=== PATIENT | female | born 1970 | race Caucasian/White ===

== ENCOUNTER → 2017-02-01 | Outpatient (CLI) | payer OTHER ==
--- NOTE | 2017-02-04 09:24 | MM ---
Reason for exam: screening (asymptomatic). Last mammogram was performed 1 year and 11 months ago. History: Took hormonal contraceptives for 4 years beginning at age 26. Physical Findings: A clinical breast exam by your physician is recommended on an annual basis and results should be correlated with mammographic findings. MG Screening Mammo w CAD Bilateral CC and MLO view(s) were taken. Prior study comparison: March 16, 2015, bilateral MG screening mammo w CAD. March 06, 2013, bilateral digital screening mammo w/CAD. There are scattered fibroglandular densities. There is chronic nodularity in the right axilla. There is no discrete abnormality. ASSESSMENT: Negative, BI-RAD 1 RECOMMENDATION: Routine screening mammogram of both breasts in 1 year.
== END ==
LOC: RADMAMWWP 16:39
PROVIDERS: ATTEND Family Medicine
DX: Z12.31 Encounter for screening mammogram for malignant neoplasm of breast (principal)

== ENCOUNTER 2017-10-10 22:07 | Emergency (ER) | payer OTHER ==
[2017-10-10] MEDS ORDERED: FAMOTIDINE 20 MG/2 ML VIAL IV STA (22:26)
[2017-10-10] MEDS ORDERED: diphenhydrAMINE 50 MG/ML 1 ML VIAL IVP STA (22:26)
[2017-10-10] MEDS ORDERED: SODIUM CHLORIDE 0.9% 1,000 ML IV ONE (22:26)
[2017-10-10] MEDS ORDERED: methylPREDNISolone SOD SUCCI 125 MG/2 ML VIAL IV STA (22:26)
--- NOTE | 2017-10-11 00:28 | ED ---
Allergic Reaction HPI - General Chief complaint: Allergic Reaction Stated complaint: Poss Allergic Reaction Time Seen by Provider: 10/10/17 22:17 Source: patient Mode of arrival: ambulatory Limitations: no limitations - History of Present Illness Initial Comments: 47-year-old female presented for evaluation of ALLERGIC reaction. States that she took her Bactrim for urinary tract infection and after the first pill started to have urticaria and pruritus. She states her no other changes to her diet and no other new medications. She states she has tingling sensation around her lips however she denies any shortness of breath or closure of her throat. There is no tongue enlargement, chest pain, shortness of breath. He says she has ALLERGIES to other antibiotics including penicillin and cephalosporins but she states no other ALLERGIES. - Related Data Home Medications Medication Instructions Recorded Confirmed Acetaminophen Tab [Tylenol Tab] 650 mg PO Q6H PRN 10/10/17 10/10/17 Cholecalciferol [Vitamin D3] 5,000 unit PO DAILY 10/10/17 10/10/17 Ferrous Sulfate [Feosol] 325 mg PO DAILY 10/10/17 10/10/17 Ibuprofen [Motrin] 200 - 400 mg PO Q6HR PRN 10/10/17 10/10/17 Pseudoephedrine 12Hr [Sudafed 12Hr] 120 mg PO Q12H PRN 10/10/17 10/10/17 Sulfamethox-Tmp 800-160Mg [Bactrim 1 tab PO Q12H 10/10/17 10/10/17 DS 800-160 mg] Previous Rx's Medication Instructions Recorded Nitrofurantoin Monohyd/M-Cryst 100 mg PO Q12HR #14 cap 10/11/17 [Macrobid] predniSONE 50 mg PO DAILY #5 tablet 10/11/17 Allergies Allergy/AdvReac Type Severity Reaction Status Date / Time cefdinir [From Omnicef] Allergy Rash/Hives Verified 10/10/17 22:42 Penicillins Allergy Unknown Verified 10/10/17 22:42 Childhood Review of Systems ROS Statement: Those systems with pertinent positive or pertinent negative responses have been documented in the HPI. ROS Other: All systems not noted in ROS Statement are negative. Constitutional: Denies: fever, chills Eyes: Denies: eye pain, eye discharge ENT: Denies: ear pain, throat pain Respiratory: Denies: cough, dyspnea Cardiovascular: Denies: chest pain, palpitations Endocrine: Denies: fatigue, polydipsia Gastrointestinal: Denies: abdominal pain, nausea, vomiting Genitourinary: Denies: urgency, dysuria Musculoskeletal: Denies: back pain, arthralgia Skin: Reports: rash, change in color, pruritus. Denies: lesions, change in hair /nails Neurological: Denies: headache, weakness Psychiatric: Denies: anxiety, depression Hematological/Lymphatic: Denies: easy bleeding, easy bruising Past Medical History Past Medical History: No Reported History History of Any Multi-Drug Resistant Organisms: None Reported Past Surgical History: Hysterectomy Past Psychological History: No Psychological Hx Reported Smoking Status: Never smoker Past Alcohol Use History: Rare Past Drug Use History: None Reported General Exam Limitations: no limitations General appearance: alert, in distress (very mild) Head exam: Present: atraumatic, normocephalic, normal inspection Eye exam: Present: normal appearance, PERRL, EOMI. Absent: scleral icterus, conjunctival injection, periorbital swelling ENT exam: Present: normal exam, mucous membranes moist Neck exam: Present: normal inspection. Absent: tenderness, meningismus, lymphadenopathy Respiratory exam: Present: normal lung sounds bilaterally. Absent: respiratory distress, wheezes, rales, rhonchi, stridor Cardiovascular Exam: Present: regular rate, normal rhythm, normal heart sounds. Absent: systolic murmur, diastolic murmur, rubs, gallop, clicks GI/Abdominal exam: Present: soft, normal bowel sounds. Absent: distended, tenderness, guarding, rebound, rigid Rectal exam: Present: deferred Extremities exam: Present: normal inspection, full ROM, normal capillary refill. Absent: tenderness, pedal edema, joint swelling, calf tenderness Back exam: Present: normal inspection Neurological exam: Present: alert, oriented X3, CN II-XII intact Psychiatric exam: Present: normal affect, normal mood Skin exam: Present: warm, dry, intact, rash (urticarial), urticaria. Absent: normal color Course Vital Signs 10/10/17 10/11/17 22:09 00:38 Temperature 98.7 F 98.3 F Pulse Rate 90 75 Respiratory 20 19 Rate Blood Pressure 129/76 137/81 O2 Sat by Pulse 100 97 Oximetry Medical Decision Making - Medical Decision Making 47-year-old female presented for evaluation of ALLERGIC reaction after taking first dose of Bactrim. On physical examination she does have urticaria and is mildly itching her skin due to the pruritus. She denies any other preceding changes in diet, detergents, medications, or other exposures. He took no medications prior to coming to the ED. She is provided with Benadryl , steroids, and Pepcid and on reevaluation had resolution of her symptoms. She was informed that should be discharged with prescription for prednisone and instructions to follow-up with her primary care physician. She was also given a new prescription for Macrobid for her urinary tract infection. She states that she has taken this in the past and did not have a reaction at that time. She was further given return instructions. Patient acknowledged an understanding of all information provided and agreed with this plan of care. Disposition Clinical Impression: Allergic reaction Disposition: HOME SELF-CARE Condition: Stable Instructions: General Allergic Reaction (ED) Additional Instructions: Please use medication as discussed. Please follow up with family doctor if symptoms have not improved over the next two days. Please return to the emergency room if your symptoms increase or worsen or for any other concerns. Prescriptions: Nitrofurantoin Monohyd/M-Cryst [Macrobid] 100 mg PO Q12HR #14 cap predniSONE 50 mg PO DAILY #5 tablet Referrals: Felix Watkins DO [Primary Care Provider] - 1-2 days Time of Disposition: 00:28
[2017-10-11 00:39] VITALS: BP 137/81; PULSE 75; RESP 19; TEMP 98.3
== END 2017-10-11 00:39 | disposition home or self-care (01) ==
LOC: EC 22:07
DX: L50.0 Allergic urticaria (principal); T37.0X5A Adverse effect of sulfonamides, initial encounter; Z88.0 Allergy status to penicillin; Z88.1 Allergy status to other antibiotic agents; Z79.899 Other long term (current) drug therapy
CPT/HCPCS: 99282; 96374; 96375 ×2; J1200; J2930

== ENCOUNTER 2018-06-09 18:19 | Emergency (ER) | payer BC, OTHER ==
[2018-06-09 18:31] VITALS: RESP 18; TEMP 98.3
--- NOTE | 2018-06-09 19:23 | XR ---
EXAMINATION TYPE: XR chest 2V DATE OF EXAM: 06/09/2018 COMPARISON: NONE HISTORY: Chest pain TECHNIQUE: Frontal and lateral views of the chest are obtained. FINDINGS: Heart and mediastinum are normal. Lungs are clear. Diaphragm is normal. Bony thorax is int act. IMPRESSION: Normal chest. No change.
[2018-06-09 19:25] LABS: Basophils % (A) 0 %; Eosinophils # (A) 0.2 k/uL (0-0.7); Eosinophils % (A) 3 %; HCT 38.6 % (34.0-46.0); HGB 12.8 gm/dL (11.4-16.0); Lymphocytes # (A) 2.1 k/uL (1.0-4.8); Lymphocytes % (A) 25 %; MCH 28.4 pg (25.0-35.0); MCHC 33.1 g/dL (31.0-37.0); MCV 85.6 fL (80.0-100.0); Mean Platelet Volume 7.3; Monocytes # (A) 0.5 k/uL (0-1.0); Monocytes % (A) 6 %; Neutrophils # (A) 5.4 k/uL (1.3-7.7); Neutrophils % (A) 65 %; Platelet Count 297 k/uL (150-450); RBC 4.51 m/uL (3.80-5.40); RDW 13.8 % (11.5-15.5); WBC 8.3 k/uL (3.8-10.6)
[2018-06-09 19:26] LABS: ALT 36 U/L (9-52); AST 25 U/L (14-36); Albumin 4.5 g/dL (3.5-5.0); Alkaline Phosphatase 58 U/L (38-126); Anion Gap 11 mmol/L; Blood Urea Nitrogen 16 mg/dL (7-17); Calcium 9.4 mg/dL (8.4-10.2); Carbon Dioxide 21 mmol/L (22-30); Chloride 106 mmol/L (98-107); Glucose 116 mg/dL (74-99); Potassium 4.3 mmol/L (3.5-5.1); Sodium 138 mmol/L (137-145); Total Bilirubin 0.2 mg/dL (0.2-1.3); Total Protein 7.4 g/dL (6.3-8.2)
--- NOTE | 2018-06-09 19:32 | ED ---
General Adult HPI - General Chief complaint: Chest Pain Stated complaint: Chest Pain Time Seen by Provider: 06/09/18 18:39 Source: patient Mode of arrival: wheelchair Limitations: no limitations - History of Present Illness Initial comments: Is a 48-year-old female with a history of migraines who presents emergency department for sharp left-sided intermittent chest pain and also palpitations. She states is been going on for the last day however around 5 PM today she had an episode of palpitations and lightheadedness that lasted and excessively long amount of time. She states that she's had intermittent episodes of palpitations in the past however typically they resolve on their own very shortly. She states that this time it lasted multiple minutes and it concerned her. [facility]. The patient states that she does not have any chest tightness. She states that she has a little bit of sharp left-sided point tenderness that is intermittent in nature. Does not have it currently. She denies any associated shortness of breath. No recent travel or surgeries. No history of PE or DVT. Denies any other acute complaints. - Related Data Home Medications Medication Instructions Recorded Confirmed Acetaminophen Tab [Tylenol Tab] 650 mg PO Q6H PRN 10/10/17 06/09/18 Ibuprofen [Motrin] 200 - 400 mg PO Q6HR PRN 10/10/17 06/09/18 Pseudoephedrine 12Hr [Sudafed 12Hr] 120 mg PO Q12H PRN 10/10/17 06/09/18 Calcium Carbonate [Tums] 500 mg PO BID PRN 06/09/18 06/09/18 Allergies Allergy/AdvReac Type Severity Reaction Status Date / Time cefdinir [From Omnicef] Allergy Rash/Hives Verified 06/09/18 19:35 Penicillins Allergy Unknown Verified 06/09/18 19:35 Childhood sulfamethoxazole Allergy Swelling Verified 06/09/18 19:35 [From Bactrim] trimethoprim [From Bactrim] Allergy Swelling Verified 06/09/18 19:35 Review of Systems ROS Statement: Those systems with pertinent positive or pertinent negative responses have been documented in the HPI. ROS Other: All systems not noted in ROS Statement are negative. Past Medical History Past Medical History: No Reported History History of Any Multi-Drug Resistant Organisms: None Reported Past Surgical History: Hysterectomy Past Psychological History: No Psychological Hx Reported Smoking Status: Never smoker Past Alcohol Use History: Rare Past Drug Use History: None Reported General Exam - General Exam Comments Initial Comments: Constitutional: Awake alert Appears comfortable Head: Normocephalic atraumatic Eyes: no conjunctival injection No scleral icterus EOMI Neck: No JVD Supple Heart: Regular rate rhythm normal S1-S2 no murmurs Lungs: Clear to auscultation bilaterally No wheezing No rales Abdomen: Soft nondistended nontender Extremities: Non edematous DP pulses intact Radial pulses intact Neuro: A&Ox3 No focal neurologic deficits Psych: Appropriate mood and affect Limitations: no limitations Course Vital Signs 06/09/18 06/09/18 18:27 20:32 Temperature 98.3 F Pulse Rate 80 71 Respiratory 18 18 Rate Blood Pressure 121/81 122/57 O2 Sat by Pulse 100 99 Oximetry EKG Findings - EKG Comments: EKG Findings:: EKG showing normal sinus rhythm with a rate of 83. There is no abnormal ST segment changes or T-wave inversions. QTC is 432. Other intervals normal. No ectopy. Medical Decision Making - Medical Decision Making Is a 48-year-old who came in for atypical chest pain and palpitations. The patient was found to have no acute abnormalities on blood work. Troponin negative. EKG was unremarkable. No abnormalities on cardiac exercise specialist upon review. The patient did not have any episodes while emergency department. At this time I felt the patient needs to have close follow-up with primary doctor and get a Holter monitor or event monitor placed. An outpatient stress test should also be arranged. The patient states that she understands and agrees. She can return emergency Department if she has worsening or changing symptoms. All questions were answered. - Lab Data Result diagrams: 06/09/18 18:39 06/09/18 18:39 Lab Results 06/09/18 06/09/18 06/09/18 Range/Units 18:39 18:39 18:39 WBC 8.3 (3.8-10.6) k/uL RBC 4.51 (3.80-5.40) m/uL Hgb 12.8 (11.4-16.0) gm/dL Hct 38.6 (34.0-46.0) % MCV 85.6 (80.0-100.0) fL MCH 28.4 (25.0-35.0) pg MCHC 33.1 (31.0-37.0) g/dL RDW 13.8 (11.5-15.5) % Plt Count 297 (150-450) k/uL Neutrophils % 65 % Lymphocytes % 25 % Monocytes % 6 % Eosinophils % 3 % Basophils % 0 % Neutrophils # 5.4 (1.3-7.7) k/uL Lymphocytes # 2.1 (1.0-4.8) k/uL Monocytes # 0.5 (0-1.0) k/uL Eosinophils # 0.2 (0-0.7) k/uL Basophils # 0.0 (0-0.2) k/uL PT (9.0-12.0) sec INR (<1.2) APTT (22.0-30.0) sec Sodium 138 (137-145) mmol/L Potassium 4.3 (3.5-5.1) mmol/L Chloride 106 (98-107) mmol/L Carbon Dioxide 21 L (22-30) mmol/L Anion Gap 11 mmol/L BUN 16 (7-17) mg/dL Creatinine 0.70 (0.52-1.04) mg/dL Est GFR (CKD-EPI)AfAm >90 (>60 ml/min/1.73 sqM) Est GFR (CKD-EPI)NonAf >90 (>60 ml/min/1.73 sqM) Glucose 116 H (74-99) mg/dL Calcium 9.4 (8.4-10.2) mg/dL Total Bilirubin 0.2 (0.2-1.3) mg/dL AST 25 (14-36) U/L ALT 36 (9-52) U/L Alkaline Phosphatase 58 (38-126) U/L CK-MB (CK-2) 0.3 (0.0-2.4) ng/mL Troponin I <0.012 (0.000-0.034) ng/mL Total Protein 7.4 (6.3-8.2) g/dL Albumin 4.5 (3.5-5.0) g/dL Urine HCG, Qual (Not Detectd) 06/09/18 06/09/18 Range/Units 18:39 18:39 WBC (3.8-10.6) k/uL RBC (3.80-5.40) m/uL Hgb (11.4-16.0) gm/dL Hct (34.0-46.0) % MCV (80.0-100.0) fL MCH (25.0-35.0) pg MCHC (31.0-37.0) g/dL RDW (11.5-15.5) % Plt Count (150-450) k/uL Neutrophils % % Lymphocytes % % Monocytes % % Eosinophils % % Basophils % % Neutrophils # (1.3-7.7) k/uL Lymphocytes # (1.0-4.8) k/uL Monocytes # (0-1.0) k/uL Eosinophils # (0-0.7) k/uL Basophils # (0-0.2) k/uL PT 9.9 (9.0-12.0) sec INR 1.0 (<1.2) APTT 25.6 (22.0-30.0) sec Sodium (137-145) mmol/L Potassium (3.5-5.1) mmol/L Chloride (98-107) mmol/L Carbon Dioxide (22-30) mmol/L Anion Gap mmol/L BUN (7-17) mg/dL Creatinine (0.52-1.04) mg/dL Est GFR (CKD-EPI)AfAm (>60 ml/min/1.73 sqM) Est GFR (CKD-EPI)NonAf (>60 ml/min/1.73 sqM) Glucose (74-99) mg/dL Calcium (8.4-10.2) mg/dL Total Bilirubin (0.2-1.3) mg/dL AST (14-36) U/L ALT (9-52) U/L Alkaline Phosphatase (38-126) U/L CK-MB (CK-2) (0.0-2.4) ng/mL Troponin I (0.000-0.034) ng/mL Total Protein (6.3-8.2) g/dL Albumin (3.5-5.0) g/dL Urine HCG, Qual Not Detected (Not Detectd) Disposition Clinical Impression: Palpitations Disposition: HOME SELF-CARE Condition: Stable Instructions: Palpitations (ED) Is patient prescribed a controlled substance at d/c from ED?: No Referrals: Felix Watkins DO [Primary Care Provider] - 1-2 days
[2018-06-09 19:41] LABS: Creatine Kinase MB 0.3 ng/mL (0.0-2.4); Troponin I <0.012 ng/mL (0.000-0.034)
[2018-06-09 19:42] LABS: Partial Thromboplastin Time 25.6 sec (22.0-30.0); Prothrombin Time 9.9 sec (9.0-12.0)
[2018-06-09 20:33] VITALS: BP 122/57; PULSE 71
== END 2018-06-09 20:33 | disposition home or self-care (01) ==
LOC: EC 18:19
DX: R00.2 Palpitations (principal); R07.89 Other chest pain; Z88.1 Allergy status to other antibiotic agents; Z88.0 Allergy status to penicillin; Z88.2 Allergy status to sulfonamides
CPT/HCPCS: 36415; 71046; 80053; 81025; 82553; 84484; 85025; 85610; 85730; 93005; 99285

== ENCOUNTER 2021-09-08 07:58 | Day surgery (SDC) | payer BC ==
[2021-09-07 09:52] VITALS: BMI 36.0
[~2021-09-08 07:58] MED LIST: LACTATED RINGERS 1,000 ML IV SCH
[2021-09-08 08:24] VITALS: TEMP 97.8
[2021-09-08] MEDS ORDERED: LACTATED RINGERS 1,000 ML IV ONE (08:26)
[2021-09-08] MEDS ORDERED: PROPOFOL 10 MG/ML 20 ML VIAL IV ONE (09:10)
--- NOTE | 2021-09-08 09:24 | P.PCN ---
Date of Procedure: 09/08/21 Procedure(s) Performed: BRIEF HISTORY: Patient is a 51-year-old pleasant white female scheduled for an elective colonoscopy as a part of screening for colorectal neoplasia. PROCEDURE PERFORMED: Colonoscopy. PREOPERATIVE DIAGNOSIS: Screening for colon cancer. IV sedation per Anesthesia. PROCEDURE: After informed consent was obtained, the patient, was brought into the endoscopy unit. IV sedation was administered by Anesthesia under continuous monitoring. Digital rectal examination was normal. Initially the Olympus CF-160 flexible video colonoscope was then inserted in the rectum, gradually advanced into the cecum without any difficulty. Careful examination was performed as the scope was gradually being withdrawn. Ileocecal valve and the appendiceal orifice were visualized and appeared normal. Prep was excellent. Mucosa of the cecum, ascending colon, transverse colon, descending colon, sigmoid colon, and rectum appeared normal. Retroflexion was performed in the rectum and no lesions were seen. The patient tolerated the procedure well. IMPRESSION: Normal-appearing colon from rectum to cecum no evidence of colorectal neoplasia. RECOMMENDATIONS: Findings of this examination were discussed with the patient as well as a family. She was advised to have a repeat screening colonoscopy in 10 years..
[2021-09-08 09:33] VITALS: RESP 16
[2021-09-08 09:47] VITALS: BP 122/78; PULSE 51
== END 2021-09-08 10:19 | disposition home or self-care (01) ==
LOC: ORWHC2ENDO 07:58
PROVIDERS: ATTEND Internal Medicine Gastroenterology
DX: Z12.11 Encounter for screening for malignant neoplasm of colon (principal); R00.2 Palpitations; Z79.1 Long term (current) use of non-steroidal anti-inflammatories (NSAID); Z88.0 Allergy status to penicillin; Z88.2 Allergy status to sulfonamides; Z88.1 Allergy status to other antibiotic agents
CPT/HCPCS: J2704; G0121

== ENCOUNTER → 2022-02-16 | Outpatient (CLI) | payer BC ==
--- NOTE | 2022-02-16 16:08 | NM ---
EXAMINATION TYPE: NM bone scan whole body, DC bone SPECT DATE OF EXAM: 02/16/2022 COMPARISON: None HISTORY: Low back pain, radiculopathy Delayed whole-body scanning was performed following the injection of 23.6 mCi Tc 99m MDP. Images acq uired 3.5 hours post injection. SPECT images were obtained through the lower spine. Whole-body imagin g obtained. FINDINGS: No abnormal uptake is evident. There is a slight spinal curvature present. Soft tissue uptake is norm al. Uptake within the shoulders, sternoclavicular joints, knees, ankles is likely degenerative. IMPRESSION: Mild spinal curvature, degenerative changes.
== END | disposition home or self-care (01) ==
LOC: RADNMMAIN 10:31
PROVIDERS: ATTEND Orthopaedic Surgery Orthopaedic Surgery of the Spine
DX: M19.012 Primary osteoarthritis, left shoulder (principal); M19.011 Primary osteoarthritis, right shoulder; M17.0 Bilateral primary osteoarthritis of knee; M19.072 Primary osteoarthritis, left ankle and foot; M19.071 Primary osteoarthritis, right ankle and foot; M43.16 Spondylolisthesis, lumbar region; M47.26 Other spondylosis with radiculopathy, lumbar region
CPT/HCPCS: 78306; 78803; A9503

== ENCOUNTER → 2023-07-01 | Outpatient (CLI) | payer BC ==
--- NOTE | 2023-07-01 11:55 | CT ---
EXAMINATION TYPE: CT soft tissue neck w con DATE OF EXAM: 07/01/2023 9:57 AM COMPARISON: None available. HISTORY: LEFT SIDED NECK PAIN CT DLP: 531.6 mGycm Automated exposure control for dose reduction was used. CONTRAST: CT scan of the neck is performed following with IV Contrast, patient injected with 100 mL of Isovue 3 00. Axial images are obtained, coronal and sagittal reformatted images are reviewed. FINDINGS: Airway: No gross abnormality seen. Parotid/submandibular glands: No gross abnormality seen. Carotid/Vascular Structures: No gross stenosis is seen. Osseous Structures: Is mild degenerative disc space narrowing at C5-6. Vertebral body heights and dis c spaces otherwise appear maintained. There is no prevertebral soft tissue swelling. Other: There is a coarse calcification within the right thyroid lobe measuring 1.3 cm in diameter. Th e visualized orbital structures and intracranial structures appear unremarkable. Visualized lung apic es are clear. IMPRESSION: 1. Mild degenerative changes. 2. No significant soft tissue neck abnormality is otherwise seen to explain the patient's clinical sy mptoms.
== END | disposition home or self-care (01) ==
LOC: RADCTMAIN 07:50
PROVIDERS: ATTEND Otolaryngology
DX: K11.23 Chronic sialoadenitis (principal); M47.812 Spondylosis without myelopathy or radiculopathy, cervical region
CPT/HCPCS: 70491; Q9967

== ENCOUNTER 2023-09-19 12:59 | Day surgery (SDC) | payer BC ==
[2023-09-19] MEDS ORDERED: ALPRAZolam 0.5 MG TAB PO STA (13:47)
[2023-09-19 14:36] VITALS: RESP 18; TEMP 97.9
[2023-09-19 15:22] VITALS: BP 124/71; PULSE 61
--- NOTE | 2023-09-19 15:26 | US ---
ULTRASOUND GUIDED FNA THYROID BIOPSY: CLINICAL HISTORY: Request for 2 right-sided and one left-sided thyroid nodule FINDINGS: The procedure was explained to the patient. The risks, complications, benefits and alternatives were discussed and any questions were answered. Informed consent was obtained. Patient was placed supin e on the ultrasound table and prepped and draped in the usual sterile fashion. Utilizing a 25 gauge needle, five passes were made into the requested right two thyroid nodules the patient could only to lerate 3 passes into the left thyroid nodule. Patient was stable throughout the procedure. Pathology is pending. All elements of maximal barrier technique were utilized. IMPRESSION: 1. Successful ultrasound guided FNA thyroid biopsy.
== END 2023-09-19 15:15 | disposition home or self-care (01) ==
LOC: RADPROMAIN 12:59
PROVIDERS: ATTEND Otolaryngology
DX: E04.1 Nontoxic single thyroid nodule (principal)
CPT/HCPCS: 10005; 10006; 88173; 88305

== ENCOUNTER → 2023-10-18 | Outpatient (CLI) | payer BC ==
--- NOTE | 2023-10-19 10:07 | MR ---
EXAMINATION TYPE: MR brain and iac wo/w con DATE OF EXAM: 10/18/2023 COMPARISON: None HISTORY: Dizziness, giddiness, balance issues. CONTRAST: Performed utilizing 9 mL intravenous Gadavist gadolinium contrast. TECHNIQUE: Multiplanar, multiecho imaging on a 3.0 Raine magnet is performed through the brain. Atte ntion is paid to the internal auditory canals with thin section imaging. Postcontrast imaging is per formed through the internal auditory canals. FINDINGS:Craniovertebral junction is normal. The pituitary is normal. Optic chiasm is visualized is normal. Diffusion-weighted imaging is performed. No suspicious hyperintensity is present to suggest an acute intracranial infarct or acute ischemic area. Signal within the brain has scattered areas of hyperintensity which are non-specific but could be rel ated to microvascular ischemic changes.. Thin section imaging is performed through the internal auditory canals and cerebellar pontine angles. No cerebellar pontine angle masses are evident. The internal auditory canals appear normal without expansion or erosion. Mastoid air cells appear clear. Petrous ridges appear unremarkable. Postcontrast imaging was performed. No suspicious enhancement is evident within the internal audito ry canals or the included portions of the brain. IMPRESSION: 1. No suspicious abnormalities internal auditory canals. 2. Visualized portions of the MRI of the brain pre and postcontrast are unremarkable.
== END | disposition home or self-care (01) ==
LOC: RADMRIMAIN 21:15
PROVIDERS: ATTEND Otolaryngology
DX: R42 Dizziness and giddiness (principal); R26.9 Unspecified abnormalities of gait and mobility
CPT/HCPCS: 70553; A9585

== ENCOUNTER 2024-02-21 01:32 | Emergency (ER) | payer BC ==
--- NOTE | 2024-02-21 01:57 | ED ---
Chest Pain HPI - General Chief Complaint: Chest Pain Stated Complaint: chest pain dizzy Time Seen by Provider: 02/21/24 01:52 Source: patient, family Mode of arrival: ambulatory Limitations: no limitations - History of Present Illness Initial Comments: Avis is a 53-year-old female who presents the ER today for evaluation of episode of chest pain and palpitations. Patient states she woke from sleep with feeling like her heart was racing and pounding very hard. She checked her pulse ox and noted that her heart rate was in the 80s but that her heart was pounding very hard. She stood up to use the restroom got very lightheaded began to feel like she was about to pass out so she woke her . Patient states she had some pressure in her left upper chest to her shoulder region. They then decided bring her to the ER. Patient has a history of palpitations in the past but no coronary artery disease or risk factors. Patient states that she no longer feels like her heart is beating very hard she no longer feels lightheaded and is not having palpitations but continues to have pressure in the left shoulder radiating down her left arm. - Related Data Home Medications Medication Instructions Recorded Confirmed Ibuprofen [Motrin] 200 - 400 mg PO DIRECTED PRN 10/10/17 09/19/23 Acetaminophen Tab [Tylenol] 650 mg PO Q6H PRN 09/07/21 09/19/23 Multivitamins, Thera [Multivitamin 1 tab PO DAILY 09/07/21 09/19/23 (formulary)] Allergies Allergy/AdvReac Type Severity Reaction Status Date / Time cefdinir [From Omnicef] Allergy Rash/Hives Verified 02/21/24 01:46 Penicillins Allergy Unknown Verified 02/21/24 01:46 Childhood sulfamethoxazole Allergy Swelling Verified 02/21/24 01:46 [From Bactrim] trimethoprim [From Bactrim] Allergy Swelling Verified 02/21/24 01:46 Review of Systems ROS Statement: Those systems with pertinent positive or pertinent negative responses have been documented in the HPI. ROS Other: All systems not noted in ROS Statement are negative. EKG Findings - EKG Comments: EKG Findings:: EKG obtained due to complaint of chest pain and palpitations, EKG obtained at 1:59 AM, rate is 68 rhythm is sinus normal axis normal intervals WA 159 QRS 85 QTc 390 there are no acute ST elevations depressions no evidence of ischemia or infarction. Past Medical History Past Medical History: Thyroid Disorder Additional Past Medical History / Comment(s): hx of heart palpitations, headaches, herniated lumbar and cervical discs, hemorrhoids, rectocele. low iron after hysterectomy - had transfusion History of Any Multi-Drug Resistant Organisms: None Reported Past Surgical History: Hysterectomy Additional Past Surgical History / Comment(s): hysterectomy with rectocele repair (2017) Past Anesthesia/Blood Transfusion Reactions: No Reported Reaction, Blood Transfusion Reaction Additional Past Anesthesia/Blood Transfusion Reaction / Comment(s): states fever with blood transfusion Past Psychological History: No Psychological Hx Reported Smoking Status: Never smoker Past Alcohol Use History: None Reported Past Drug Use History: None Reported - Past Family History Father Family Medical History: Cancer Additional Family Medical History / Comment(s): skin cancer General Exam Limitations: no limitations Course Vital Signs 02/21/24 02/21/24 02/21/24 01:37 02:09 04:05 Temperature 97.7 F Pulse Rate 94 72 88 Respiratory 19 16 18 Rate Blood Pressure 154/92 139/70 148/83 O2 Sat by Pulse 98 97 100 Oximetry 02/21/24 04:32 Temperature Pulse Rate 74 Respiratory 16 Rate Blood Pressure 131/81 O2 Sat by Pulse 99 Oximetry Chest Pain MDM - MDM Was pt. sent in by a medical professional or institution ([facility], [employer], urgent care, hospital, or long-term...) When possible be specific @ -[No] Did you speak to anyone other than the patient for history (EMS, parent, family, police, friend...)? What history was obtained from this source @ -[No] Did you review nursing and triage notes (agree or disagree)? Why? @ -[I reviewed and agree with nursing and triage notes] Were old charts reviewed (outside hosp., previous admission, EMS record, old EKG, old radiological studies, urgent care reports/EKG's, long-term records)? Report findings @ -[No old charts were reviewed] Differential Diagnosis (chest pain, altered mental status, abdominal pain women, abdominal pain men, vaginal bleeding, weakness, fever, dyspnea, syncope, head ache, dizziness, GI bleed, back pain, seizure, CVA, palpatations, mental health)? @ -[not applicable] EKG interpreted by me (3pts min.). @ -[As above] X-rays interpreted by me (1pt min.). @ -[None done] CT interpreted by me (1pt min.). @ -[None done] U/S interpreted by me (1pt. min.). @ -[None done] What testing was considered but not performed or refused? (CT, X-rays, U/S, labs)? Why? @ -[None] What meds were considered but not given or refused? Why? @ -[None] Did you discuss the management of the patient with other professionals (professionals i.e. DrIris, PA, [employer], lab, RT, psych nurse, aids social worker, block handler, teacher, hospital chief executive officer, upper caser)? Give summary @ -[No] Was smoking cessation discussed for >3mins.? @ -[No] Was critical care preformed (if so, how long)? @ -[No] Were there social determinants of health that impacted care today? How? (Homelessness, low income, unemployed, alcoholism, drug addiction, transportation, low edu. Level, literacy, decrease access to med. care, long-term, rehab)? @ -[No] Was there de-escalation of care discussed even if they declined (Discuss DNR or withdrawal of care, Hospice)? DNR status @ -[No] What co-morbidities impacted this encounter? (DM, HTN, Smoking, COPD, CAD, Cancer, CVA, ARF, Chemo, Hep., AIDS, mental health diagnosis, sleep apnea, morbid obesity)? @ -[None] Was patient admitted / discharged? Hospital course, mention meds given and route, prescriptions, significant lab abnormalities, going to OR and other pertinent info. @ -[hospital course] Heart score 3 - Undiagnosed new problem with uncertain prognosis? @ -[No] Drug Therapy requiring intensive monitoring for toxicity (Heparin, Nitro, Insulin, Cardizem)? @ -[No] Were any procedures done? @ -[No] Diagnosis/symptom? @ -[default] Acute, or Chronic, or Acute on Chronic? @ -[default] Uncomplicated (without systemic symptoms) or Complicated (systemic symptoms)? @ -[default] Side effects of treatment? @ -[No] Exacerbation, Progression, or Severe Exacerbation? @ -[No] Poses a threat to life or bodily function? How? (Chest pain, [place], [place], pneumonia, PE, COPD, DKA, ARF, appy, cholecystitis, CVA, Diverticulitis, Homicidal, Suicidal, threat to staff... and all critical care pts) @ -[No] Disposition Clinical Impression: Atypical chest pain Disposition: HOME SELF-CARE Condition: Stable Instructions (If sedation given, give patient instructions): Chest Pain (ED) Is patient prescribed a controlled substance at d/c from ED?: No Referrals: Felix Watkins DO [Primary Care Provider] - 1-2 days
[2024-02-21 02:17] LABS: Basophils # (A) 0.1 k/uL (0-0.2); Basophils % (A) 1 %; Eosinophils # (A) 0.2 k/uL (0-0.7); Eosinophils % (A) 3 %; HCT 40.8 % (34.0-46.0); HGB 13.5 gm/dL (11.4-16.0); Lymphocytes # (A) 2.8 k/uL (1.0-4.8); Lymphocytes % (A) 39 %; MCH 29.9 pg (25.0-35.0); MCHC 33.1 g/dL (31.0-37.0); MCV 90.1 fL (80.0-100.0); Mean Platelet Volume 8.2; Monocytes # (A) 0.4 k/uL (0-1.0); Monocytes % (A) 6 %; Neutrophils # (A) 3.4 k/uL (1.3-7.7); Neutrophils % (A) 49 %; Platelet Count 131 k/uL (150-450); RBC 4.53 m/uL (3.80-5.40); RDW 12.9 % (11.5-15.5)
--- NOTE | 2024-02-21 02:31 | XR ---
EXAMINATION TYPE: XR chest 2V DATE OF EXAM: 02/21/2024 COMPARISON: Chest x-ray June 09, 2018 HISTORY: Chest pain. TECHNIQUE: Frontal and lateral views of the chest are obtained. FINDINGS: There is no focal air space opacity, pleural effusion, or pneumothorax seen. The cardiac silhouette size is mildly enlarged on current study. Overlying EKG leads are redemonstrated. The os seous structures are intact. IMPRESSION: Mild cardiomegaly without acute pulmonary process.
[2024-02-21 02:35] LABS: ALT 63 U/L (4-34); AST 45 U/L (14-36); African American GFR (CKD) >90 (>60 ml/min/1.73 sqM); Albumin 4.6 g/dL (3.5-5.0); Alkaline Phosphatase 83 U/L (38-126); Anion Gap 9 mmol/L; Blood Urea Nitrogen 18 mg/dL (7-17); Calcium 9.5 mg/dL (8.4-10.2); Carbon Dioxide 23 mmol/L (22-30); Chloride 107 mmol/L (98-107); Glucose 108 mg/dL (74-99); Magnesium 1.9 mg/dL (1.6-2.3); Non-African American GFR(CKD) >90 (>60 ml/min/1.73 sqM); Potassium 4.1 mmol/L (3.5-5.1); Sodium 139 mmol/L (137-145); Total Bilirubin 0.4 mg/dL (0.2-1.3); Total Protein 7.9 g/dL (6.3-8.2)
[2024-02-21 02:43] LABS: NT-Pro-B-Type Natriuretic Pept <20 pg/mL
[2024-02-21 02:47] LABS: INR 0.9 (<1.2); Partial Thromboplastin Time 27.6 sec (22.0-30.0); Prothrombin Time 10.2 sec (10.0-12.5)
[2024-02-21] MEDS: ASPIRIN 81 MG PO STA (03:55)
[2024-02-21] MEDS: NITROGLYCERIN SL TABS 0.4 MG TAB SUBLINGUAL STA (03:56)
[2024-02-21 05:54] VITALS: BP 132/76; PULSE 76; RESP 19; TEMP 97.9
== END 2024-02-21 05:47 | disposition home or self-care (01) ==
LOC: EC 01:32
DX: R07.89 Other chest pain (principal); Z88.2 Allergy status to sulfonamides; Z88.1 Allergy status to other antibiotic agents; Z88.8 Allergy status to other drugs, medicaments and biological substances
CPT/HCPCS: 36415; 71046; 80053; 83735; 83880; 84484; 85025; 85610; 85730; 93005; 99285

== ENCOUNTER → 2024-03-25 | Outpatient (CLI) | payer BC ==
--- NOTE | 2024-03-25 17:12 | US ---
EXAMINATION TYPE: US thyroid st tissue head/neck DATE OF EXAM: 03/25/2024 COMPARISON: [facility] 2022, US 08/30/2023 CLINICAL INDICATION: , 54 years old with history of E04.1 THYROID NODULE; Thyroid nodule GLAND SIZE: Right Lobe: 5.3 x 1.5 x 1.7 cm Overall Parenchyma: heterogeneous Left Lobe: 4.3 x 1.1 x 1.5 cm Overall Parenchyma: heterogeneous Isthmus Thickness: 0.5 cm NODULES RIGHT: # of nodules measured on right: 2 1. 1.7 X 1.0 x 1.0 cm, mid lateral, solid or almost completely solid, hypoechoic nodule, which is a s wide as it is tall, with smooth margins, with echogenic foci. Prior size: 1.7 x 1.1 x 1.2 cm 2. 1.3 X 1.1 x 0.8 cm, lower lateral, solid or almost completely solid, hypoechoic nodule, which is wider than tall, with smooth margins, without echogenic foci. Prior size: 1.3 x 1.2 x 0.8 cm LEFT: # of nodules measured on left: 1 1. 1.0 X 0.7 x 0.7 cm, mid medial, solid or almost completely solid, hypoechoic nodule, which is as wide as it is tall, with smooth margins, with echogenic foci. Prior size: 1.1 x 0.6 x 0.7 cm ISTHMUS: # of nodules measured in the isthmus: 1 1. 0.8 X 0.8 x 0.5 cm solid or almost completely solid, hypoechoic nodule, which is wider than tall , with smooth margins, without echogenic foci. Prior size: 0.9 x 0.7 x 0.8 cm Bilateral neck scanned, no evidence of lymphadenopathy. IMPRESSION: Stable bilateral thyroid nodules from prior exam.
== END | disposition home or self-care (01) ==
LOC: RADUSWWP 16:31
PROVIDERS: ATTEND Otolaryngology
DX: E04.2 Nontoxic multinodular goiter (principal)
CPT/HCPCS: 76536

== ENCOUNTER → 2024-04-15 | Outpatient (CLI) | payer BC ==
--- NOTE | 2024-04-16 09:56 | CA ---
Transthoracic Echo Report Name: Avis Hong Age: 54 Gender: F : 1970 Exam Date: 04/15/2024 16:54 Exam Location: [facility] Ht (in): 64 Wt (lb): 210 Ordering Physician: Felix Watkins DO Attending/Referring Phys: José Miguel [facility] Practice Administrator Danielle Beckman RDCS Procedure CPT: Indications: R07.9 CHEST PAIN, UNSPECIFIED Cardiac Hx: Technical Quality: Good Contrast 1: Total Dose (mL): Contrast 2: Total Dose (mL): MEASUREMENTS (Male / Female) Normal Values 2D ECHO LV Diastolic Diameter PLAX 5.0 cm 4.2 - 5.9 / 3.9 - 5.3 cm LV Systolic Diameter PLAX 3.1 cm IVS Diastolic Thickness 0.9 cm 0.6 - 1.0 / 0.6 - 0.9 cm LVPW Diastolic Thickness 0.9 cm 0.6 - 1.0 / 0.6 - 0.9 cm LV Relative Wall Thickness 0.4 RV Internal Dim ED PLAX 3.1 cm LVOT Diameter 2.3 cm LV Diastolic Volume MOD BP 119.9 cm??? 67 - 155 / 56 - 104 cm??? LV Systolic Volume MOD BP 40.6 cm??? 22 - 58 / 19 - 49 cm??? LV Ejection Fraction MOD BP 66.2 % >= 55 % LV Cardiac Index MOD BP 2811.2 cm???/min???m??? LV Diastolic Volume MOD 4C 133.1 cm??? LV Systolic Volume MOD 4C 48.0 cm??? LV Ejection Fraction MOD 4C 64.0 % LV Cardiac Index MOD 4C 3017.1 cm???/min???m??? LV Diastolic Length 4C 9.1 cm LV Systolic Length 4C 7.5 cm LV Diastolic Volume MOD 2C 106.7 cm??? LV Systolic Volume MOD 2C 33.5 cm??? LV Ejection Fraction MOD 2C 68.6 % LV Cardiac Index MOD 2C 2594.3 cm???/min???m??? LV Diastolic Length 2C 8.9 cm LV Systolic Length 2C 7.7 cm LA Volume 48.8 cm??? 18 - 58 / 22 - 52 cm??? LA Volume Index 23.1 cm???/m??? 16 - 28 cm???/m??? Ascending Aorta Diameter 3.9 cm DOPPLER AV Peak Velocity 172.7 cm/s AV Peak Gradient 11.9 mmHg AV Mean Velocity 114.9 cm/s AV Mean Gradient 6.0 mmHg AV Velocity Time Integral 33.9 cm LVOT Peak Velocity 120.0 cm/s LVOT Peak Gradient 5.8 mmHg LVOT Velocity Time Integral 24.4 cm LVOT Stroke Volume 99.6 cm??? LVOT Stroke Volume Index 49.9 ml/m??? LVOT Cardiac Index 3529.4 cm???/min???m??? AV Area Cont Eq vti 2.9 cm??? AV Area Cont Eq pk 2.8 cm??? MV Area PHT 4.7 cm??? Mitral E Point Velocity 68.4 cm/s Mitral A Point Velocity 70.3 cm/s Mitral E to A Ratio 1.0 MV Deceleration Time 160.6 ms TR Peak Velocity 252.6 cm/s TR Peak Gradient 25.5 mmHg Right Atrial Pressure 5.0 mmHg Pulmonary Artery Systolic Pressu 30.5 mmHg Right Ventricular Systolic Press 30.5 mmHg PV Peak Velocity 104.0 cm/s PV Peak Gradient 4.3 mmHg FINDINGS Left Ventricle Left ventricular ejection fraction is estimated at 60-65 %. Moderately increased left ventricular diastolic volume. Left ventricular cavity size normal. Left ventricular wall thickness normal. No obvious regional wall motion abnormalities. Right Ventricle Normal right ventricular size and function. Right ventricular systolic pressure within normal limits. Right Atrium Normal right atrial size. Left Atrium Normal left atrial size. Mitral Valve Structurally normal mitral valve. No evidence for mitral valve prolapse. No mitral stenosis. Trace mitral regurgitation. Aortic Valve Trileaflet aortic valve. No aortic stenosis. Mild aortic regurgitation. Tricuspid Valve Structurally normal tricuspid valve. No tricuspid stenosis. Mild tricuspid regurgitation. Pulmonic Valve Structurally normal pulmonic valve. No pulmonic stenosis. Trace pulmonic regurgitation. Pericardium No pericardial effusion. Aorta Normal size aortic root and proximal ascending aorta. CONCLUSIONS Normal LV size and systolic function. Minimal mitral tricuspid and aortic insufficiency. No pericardial effusion. No pulmonary hypertension Previewed by: Dr. Martinez Taveras MD (Electronically Signed) Final Date: 16 Apr 2024 09:56
== END | disposition home or self-care (01) ==
LOC: RADECHMAIN 16:47
PROVIDERS: ATTEND Family Medicine
DX: I34.0 Nonrheumatic mitral (valve) insufficiency (principal); I35.1 Nonrheumatic aortic (valve) insufficiency; I36.1 Nonrheumatic tricuspid (valve) insufficiency
CPT/HCPCS: 93306